=== PATIENT | female | born 1930 | race Caucasian/White ===

== ENCOUNTER 2016-06-06 20:19 | Emergency (ER) | payer MEDICARE ==
[~2016-06-06 20:19] MED LIST: AMITRIPTYLINE 775 MG PO; CEFTIN250 MG PO; CLARITIN10 MG PO; CYCLOBENZAPRINE5 MG PO; DEXILANT30 MG PO; DRISDOL50000 UNIT PO; DUONEB 2.5-0.5M1 AMP NEB; FLEXERIL5 MG PO; LORTAB 7.5-3251 EACH PO; NEURONTIN300 MG PO; XANAX0.5 MG PO
[2016-06-06 21:30] LABS: BASOPHIL 0.6 % (0-2); EOSINOPHIL 2.3 % (0-7); HCT 38.8 % (37.0-47.0); HGB 13.1 g/dl (12.5-16.0); LYMPHOCYTE 23.7 % (15-48); MCH 32.3 pg (25.0-31.0); MCHC 33.8 g/dL (32.0-36.0); MCV 95.6 fL (78.0-100.0); MONOCYTE 9.5 % (0-12); MPV 8.8 fL (6.0-9.5); NEUTROPHIL 63.9 % (41-80); PLT 242 K/uL (150-400); RBC 4.06 M/uL (4.20-5.40); WBC 6.4 K/uL (4.0-10.5)
[2016-06-06 21:48] LABS: ALBUMIN 3.8 g/dL (3.4-4.8); BILIRUBIN - TOTAL 0.2 mg/dL (0.1-1.0); CREATININE 0.9 mg/dL (0.5-1.0); POTASSIUM 4.4 mmol/L (3.5-5.1); TOTAL PROTEIN 5.8 g/dL (6.4-8.3)
[2016-06-06 21:50] LABS: PRO-BNP 135 pg/mL (0-450); TROPONIN T < 0.010 ng/mL
== END 2016-06-06 23:20 | disposition home or self-care (01) ==
LOC: FER 20:19
PROVIDERS: Emergency Medicine
DX: R06.02 Shortness of breath (principal); I49.1 Atrial premature depolarization; Z87.01 Personal history of pneumonia (recurrent); Z85.3 Personal history of malignant neoplasm of breast; Z88.8 Allergy status to other drugs, medicaments and biological substances
CPT/HCPCS: 36415; 70450; 71010; 80053; 83880; 84484; 85025; 87804; 87899; 93005